=== PATIENT | female | born 1955 | race Caucasian/White ===

== ENCOUNTER → 2017-12-13 09:35 | Outpatient (CLI) | payer BC, SELFPAY ==
--- NOTE | 2017-12-13 09:42 | RAD_ITS ---
PROCEDURE: Fluoroscopic guided Hip Injection DATE: December 13, 2017 INDICATION: Female, 62 years old. Chronic right hip pain. PHYSICIAN: Rivera Ruvalcaba M.D. MEDICATIONS: 6 mg of betamethasone, 3 cc of 1% lidocaine. 2% Lidocaine administered subcutaneously for local anesthesia. ACCESS SITE: Right hip. NEEDLE: 22-gauge spinal needle. FLUOROSCOPY TIME (if supplied): (26 seconds) minutes/seconds FINDINGS: The risks, benefits, and alternatives to the procedure were explained to the patient. The specific risks of bleeding, infection, and neurovascular injury were detailed and accepted. Witnessed informed consent was obtained. A 22-gauge spinal needle was positioned under right graphic fluoroscopic localization. Approximately 2 cc of Isovue-300 instilled for localization purposes. Medication was then injected. The patient tolerated the procedure well without any immediate complications. The patient was placed supine with head elevated and returned to the floor in stable condition. RAD/Inj/Asp Rickie Jt Should/Hip/Knee IMPRESSION: 1. Successful fluoroscopic guided hip injection. Electronically Signed: Rivera Ruvalcaba MD at 10:44 EDT Tel [phone], Service support ,
== END ==
PROVIDERS: Family Provider Preventive Medicine Occupational Medicine; PCP Preventive Medicine Occupational Medicine; Visit Provider Specialist
DX: M16.11 Unilateral primary osteoarthritis, right hip (principal)
CPT/HCPCS: 20610; 77002; Q9965; J0702

== ENCOUNTER → 2018-03-21 07:31 | Outpatient (CLI) | payer BC, SELFPAY | PROVIDERS: Family Provider Preventive Medicine Occupational Medicine; PCP Preventive Medicine Occupational Medicine; Visit Provider Surgery Vascular Surgery | DX: M79.609 Pain in unspecified limb (principal); M79.89 Other specified soft tissue disorders; Z86.718 Personal history of other venous thrombosis and embolism | CPT/HCPCS: 93971 ==

== ENCOUNTER → 2018-04-03 08:50 | Day surgery (SDC) | payer BC, SELFPAY ==
[2018-04-02 09:57] VITALS: BMI 33.5
[2018-04-03 09:22] LABS: Albumin, Serum 3.4 g/dL (3.2-5.0); BUN 14 mg/dL (7-18); BUN/Creat Ratio 16.1 RATIO (10-20); Calcium,Total 9.5 mg/dL (8.5-10.1); Chloride 103 mmol/L (98-107); Creatinine, Serum 0.87 mg/dL (0.55-1.02); EST Glomerular Filtration Rate 70 mL/min (>60); Est Glom Filt Rate - Afr Amer 85 mL/min (>60); Estimated Creatinine Clearance 61.16 ml/min; Glucose 98 mg/dL (74-106); Potassium 3.2 mmol/L (3.5-5.1); Sodium Level 142 mmol/L (136-145)
[2018-04-03 09:29] LABS: Hematocrit 40.5 % (37-47); Hemoglobin 12.3 g/dl (12.0-15.0); Mean Corp Hgb Conc 30.4 g/gl (32-36); Mean Corpuscular Hgb 28.1 pg (27.0-32.0); Mean Corpuscular Volume 92.5 fL (81-99); Platelet Count 324 K/mm3 (150-450); RBC Distribution Width CV 13.7 % (11.6-14.6); RBC Distribution Width SD 46.3 fl (35.1-43.9); Red Blood Count 4.38 M/mm3 (4.2-5.4); White Blood Count 5.5 K/mm3 (4.4-11.0)
[2018-04-03 09:31] LABS: Scan Indicated on CBC? Y/N NO
[2018-04-03 09:33] LABS: International Normalized Ratio 1.2
[2018-04-03 09:34] LABS: Partial Thromboplast Time 29.5 Seconds (24.1-36.2)
--- NOTE | 2018-04-03 10:42 | PCM.OPRPT ---
Problem List (1) DVT (deep venous thrombosis) Status: Acute Report of Operation Date of Procedure: 04/03/18 Pre-Operative Diagnosis: DVT Post-Operative Diagnosis: The same Surgery/Procedure Performed:: 1. Ultrasound-guided access antegrade right common femoral vein. 2. Inferior venacavogram. 3. Placement of a Frannie temporary IVC filter Type of Anesthesia:: Sedation,Conscious Description of Procedure: Patient brought to the [facility]. And with the appropriate timeout consent. Underwent sedation. Prepped and draped in a sterile fashion. We did ultrasound-guided access antegrade in the right common femoral vein wire up. We then brought in the filter sheath over the wire. We then did a cavogram showing the reflux in the left right and left renal veins. We replaced the wire and dilator brought the sheath up higher and remove those out. We then brought in the filter through the sheath deployed with the hook anterior and in good position. We then removed out the sheath held pressure with good hemostasis. She was brought to recovery in stable condition. Sedation: 63-year-old female underwent moderate sedation given by Dr. Alan Corrigan. She was given fentanyl and Versed. She was monitored with blood pressure EKG and pulse ox. For more than 30 minutes of the procedure. She tolerated the procedure well. See the EMR for the complete record
== END ==
PROVIDERS: Family Provider Preventive Medicine Occupational Medicine; PCP Preventive Medicine Occupational Medicine; Visit Provider Surgery Vascular Surgery
DX: I82.409 Acute embolism and thrombosis of unspecified deep veins of unspecified lower extremity (principal); I10 Essential (primary) hypertension; M19.90 Unspecified osteoarthritis, unspecified site; F41.9 Anxiety disorder, unspecified; Z79.01 Long term (current) use of anticoagulants; Z79.899 Other long term (current) drug therapy; Z86.718 Personal history of other venous thrombosis and embolism; Z86.711 Personal history of pulmonary embolism; Z87.891 Personal history of nicotine dependence; F32.9 Major depressive disorder, single episode, unspecified
CPT/HCPCS: 36415; 37191; 76937; 80069; 85027; 85610; 85730; 99152; J7040; Q9967; C1769; C1880

== ENCOUNTER → 2025-05-01 | Outpatient (CLI) | payer MEDICARE, BC, SELFPAY ==
--- NOTE | 2025-05-01 14:41 | ECHOD_ITS ---
Reason For Study Reason For Study: DYSPNEA Procedure This was a 2D Doppler, Color Flow transthoracic echocardiogram. The study was technically difficult. Exam performed in department. Left Ventricle Normal LV size. The estimated ejection fraction is 65 %. No evidence for diastolic dysfunction. No regional wall motion abnormalities noted. Right Ventricle Normal RV size. Normal systolic function. Atria The left and right atria are normal. No doppler evidence for ASD. Mitral Valve There is no mitral valve stenosis. No mitral valve insufficiency. Tricuspid Valve There is no tricuspid stenosis. Trivial tricuspid valve insufficiency. Pulmonary artery systolic pressure is 25-30 mmHg. Aortic Valve Trisinus/trileaflet aortic valve. There is no aortic stenosis. No aortic valve insufficiency. Pulmonic Valve There is no pulmonic valvular stenosis. No pulmonic valve insufficiency. Great Vessels Normal sized aortic root. Pericardium/Pleural No pericardial effusion. MMode/2D Measurements & Calculations LVIDd: 4.1 cm IVSd: 1.3 cm Ao root diam: 3.4 cm LVIDs: 2.8 cm LVPWd: 1.3 cm FS: 32.4 % LAV(MOD-sp4): 40.0 ml LA A4 area: 14.8 cm2 LA dimension(2D): 3.6 cm RA A4 area: 11.3 cm2 Time Measurements MV dec time: 0.12 sec Doppler Measurements & Calculations MV E max obi: 51.8 cm/sec Lat Peak E' Obi: 8.9 cm/sec Med Peak E' Obi: 5.7 cm/sec MV A max obi: 74.1 cm/sec E/E' lat: 5.8 E/E' med: 9.0 MV E/A: 0.70 MV V2 max: 119.8 cm/sec MV dec slope: 438.1 cm/sec2 Ao V2 max: 113.4 cm/sec MV max P.7 mmHg Ao max P.2 mmHg MV V2 mean: 70.9 cm/sec Ao V2 mean: 79.3 cm/sec MV mean P.3 mmHg Ao mean P.9 mmHg MV V2 VTI: 23.2 cm Ao V2 VTI: 21.9 cm AV (velocity ratio): 0.68 LV V1 max: 92.9 cm/sec PA V2 max: 114.3 cm/sec LV V1 max P.5 mmHg PA V2 mean: 75.6 cm/sec LV V1 mean P.6 mmHg LV V1 mean: 57.2 cm/sec LV V1 VTI: 15.0 cm ECHO/Echo Complete Interpretation Summary The estimated ejection fraction is 65 %. No evidence for diastolic dysfunction. Ordering Physician: Stoney Bae V Referring Physician: Stoney Bae V Performed By: Lindsey Garcia RCS
== END | disposition home or self-care (01) ==
LOC: CVS 14:40
PROVIDERS: PCP Preventive Medicine Occupational Medicine; Referring Provider Internal Medicine Pulmonary Disease; Visit Provider Internal Medicine Pulmonary Disease
DX: R06.00 Dyspnea, unspecified (principal); R09.02 Hypoxemia
CPT/HCPCS: 93306